=== PATIENT | female | born 1975 | race Caucasian/White ===

== ENCOUNTER 2020-03-24 14:54 | Emergency (ER) | payer SELFPAY ==
[~2020-03-24 14:54] MED LIST: Sterile Water 10 ML VIAL ONE; cefTRIAXone\\ROCEPHIN 1 GM VIAL ONE
[2020-03-24 15:36] LABS: Bilirubin Negative (Negative); Blood, Urine Trace (Negative); Clarity Cloudy (Clear); Glucose, Urine (Dipstick) Negative (Negative); Ketone, Urine Negative (Negative); Leukocyte Moderate (Negative); Nitrite Negative (Negative); Protein, Urine (Dipstick) Negative (Neg-Trace); Urobilinogen 0.2 mg/dL (Less than 2); pH, Urine 7.5 (5.0-9.0)
[2020-03-24 15:40] LABS: Bacteria/HPF 2+ HPF (None Seen); RBC/HPF 0-3 HPF (0-3); WBC/HPF 21-50 HPF (0-3)
== END 2020-03-24 16:55 | disposition home or self-care (01) ==
LOC: MADERS 14:54
DX: N39.0 Urinary tract infection, site not specified (principal); F17.210 Nicotine dependence, cigarettes, uncomplicated; I10 Essential (primary) hypertension
CPT/HCPCS: 81003; 81015; 87077; 87086; 87186; 96372; 99283; J0696

== ENCOUNTER 2020-07-14 07:52 | Emergency (ER) | payer SELFPAY ==
[2020-07-14] MEDS ORDERED: Lorazepam 2 MG/ML VIAL ONE (08:19)
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
[2020-07-14] MEDS ORDERED: Lidocaine 1% w/Epinephrine 1:100K 20 ML VIAL ONE (08:49)
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
== END 2020-07-14 09:45 | disposition home or self-care (01) ==
LOC: MADERS 07:52
DX: S01.81XA Laceration without foreign body of other part of head, initial encounter (principal); S40.012A Contusion of left shoulder, initial encounter; R07.9 Chest pain, unspecified; M54.2 Cervicalgia; F17.210 Nicotine dependence, cigarettes, uncomplicated; I10 Essential (primary) hypertension; V43.92XA Unspecified car occupant injured in collision with other type car in traffic accident, initial encounter
CPT/HCPCS: 12001; 12051; 70450; 71045; 72125; 96374; G0390; J2060

== ENCOUNTER 2020-07-18 08:49 | Emergency (ER) | payer BC, SELFPAY ==
[2020-07-18] MEDS ORDERED: Iopamidol 370 76% 100 ML VIAL ONE (09:06)
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
== END 2020-07-18 11:15 | disposition home or self-care (01) ==
LOC: MADERS 08:49
DX: S01.81XA Laceration without foreign body of other part of head, initial encounter (principal); S80.12XA Contusion of left lower leg, initial encounter; M25.512 Pain in left shoulder; N94.89 Other specified conditions associated with female genital organs and menstrual cycle; J06.9 Acute upper respiratory infection, unspecified; I10 Essential (primary) hypertension; F17.210 Nicotine dependence, cigarettes, uncomplicated; V89.2XXA Person injured in unspecified motor-vehicle accident, traffic, initial encounter
CPT/HCPCS: 74177; Q9967

== ENCOUNTER 2024-02-04 15:17 | Emergency (ER) | payer SELFPAY ==
[2024-02-04] MEDS ORDERED: predniSONE 20 MG TAB ONE (15:31)
== END 2024-02-04 15:40 | disposition home or self-care (01) ==
LOC: MADERS 15:17
DX: T63.461A Toxic effect of venom of wasps, accidental (unintentional), initial encounter (principal); F17.210 Nicotine dependence, cigarettes, uncomplicated; I10 Essential (primary) hypertension
CPT/HCPCS: 99283; J7512

== ENCOUNTER 2024-05-31 08:02 | Emergency (ER) | payer SELFPAY ==
[2024-05-31] MEDS ORDERED: Doxycycline 100 MG CAP ONE (09:34)
[2024-05-31] MEDS ORDERED: methylPREDNISolone Sod Succ/PF 125 MG/2 ML VIAL ONE (09:35)
== END 2024-05-31 09:52 | disposition home or self-care (01) ==
LOC: MADERS 08:02
DX: J01.90 Acute sinusitis, unspecified (principal); I10 Essential (primary) hypertension; F17.210 Nicotine dependence, cigarettes, uncomplicated
CPT/HCPCS: 71046; 96372; J2919

== ENCOUNTER 2025-05-19 11:51 | Emergency (ER) | payer SELFPAY | END 2025-05-19 13:29 | disposition home or self-care (01) | LOC: MADERS 11:51 | DX: J01.00 Acute maxillary sinusitis, unspecified (principal); I10 Essential (primary) hypertension; F17.210 Nicotine dependence, cigarettes, uncomplicated | CPT/HCPCS: 71046 ==